=== PATIENT | female | born 1990 | race Two or more races ===

== ENCOUNTER → 2021-01-19 | Outpatient (CLI) | payer OTHER | END | disposition home or self-care (01) | LOC: XYW 13:12 | DX: S43.401A Unspecified sprain of right shoulder joint, initial encounter (principal); M77.8 Other enthesopathies, not elsewhere classified; X58.XXXA Exposure to other specified factors, initial encounter; Y93.89 Activity, other specified; Y92.89 Other specified places as the place of occurrence of the external cause; Y99.8 Other external cause status | CPT/HCPCS: 73221 ==